=== PATIENT | female | born 1955 | race Hispanic/Latino ===

== ENCOUNTER 2017-10-20 16:18 | Outpatient (CLI) | payer BC | END 2017-10-20 16:19 | disposition home or self-care (01) | LOC: BICMAMMO 16:18 | PROVIDERS: ATTEND Physician Assistant | DX: Z12.31 Encounter for screening mammogram for malignant neoplasm of breast (principal); Z80.3 Family history of malignant neoplasm of breast | CPT/HCPCS: 77063; 77067 ==

== ENCOUNTER 2018-01-12 23:06 | Observation (INO) | payer BC ==
[2018-01-12] MEDS ORDERED: Ondansetron PF 4 MG/2 ML Vial ONE (23:19)
[2018-01-12] MEDS ORDERED: Nitroglycerin 2% Ointment 1 INCH/1 GM Packet ONE (23:51)
[2018-01-12 23:53] LABS: #Eosinphils 0.1 thou/uL (0.0-0.7); #Lymphocytes 1.6 thou/uL (1.20-3.40); #Monocytes 0.3 thou/uL (0.11-0.59); #Neutrophils 7.4 thou/uL (1.40-6.50); %Basophils 0.2 % (0.0-1.0); %Eosinophils 0.9 % (0.0-10.0); %Lymphocytes 17.1 % (21.0-51.0); %Monocytes 3.4 % (0.0-10.0); %Neutrophils 78.4 % (42.0-75.0); Hemoglobin 13.9 g/dL (12.0-16.0); Mean Corpuscular HGB CONC 30.8 g/dL (32.0-36.0); Mean Corpuscular Hemoglobin 27.1 pg (27.0-31.0); Mean Corpuscular Volume 87.9 fL (78.0-98.0); Mean Platelet Volume 7.2 fL (7.4-10.4); Platelet Count 268 thou/uL (130-400); RBC Distribution Width 11.7 % (11.5-14.5); Red Blood Cell (RBC) Count 5.14 mill/uL (4.20-5.40); White Blood Cell (WBC) Count 9.4 thou/uL (4.8-10.8)
[2018-01-13 00:17] LABS: ALT (SGPT) 25 U/L (8-55); AST (SGOT) 22 U/L (5-34); Albumin 4.4 g/dL (3.4-4.8); Alkaline Phosphatase 90 U/L (40-150); Anion Gap 15 mmol/L (10-20); BUN (Urea Nitrogen) 20 mg/dL (9.8-20.1); Bilirubin, Total 0.5 mg/dL (0.2-1.2); CK (CPK) 86 U/L (29-168); Calc. Creatinine Clearance 0 mL/min (70-130); Calcium 9.7 mg/dL (7.8-10.44); Carbon Dioxide 24 mmol/L (23-31); Chloride 103 mmol/L (98-107); Estimated GFR-MDRD 67; Globulin 3.3 g/dL (2.4-3.5); Glucose 180 mg/dL (80-115); Lipase 306 U/L (8-78); Potassium 4.1 mmol/L (3.5-5.1); Protein, Total 7.7 g/dL (6.0-8.3); Sodium 138 mmol/L (136-145)
[2018-01-13 00:21] LABS: CKMB 1.7 ng/mL (0-6.6); Troponin I Less than 0.010 ng/mL (< 0.028)
[2018-01-13] MEDS ORDERED: Ondansetron PF 4 MG/2 ML Vial IVP PRN ×2 (02:12→08:57)
[2018-01-13] MEDS ORDERED: Ondansetron ODT 4 MG TAB SL PRN (02:12)
[2018-01-13] MEDS ORDERED: Acetaminophen 325 MG TAB PO PRN ×2 (02:12→08:57)
[2018-01-13 02:24] VITALS: BMI 31.0
[2018-01-13 03:43] LABS: Troponin I Less than 0.010 ng/mL (< 0.028)
[2018-01-13 06:39] LABS: Troponin I Less than 0.010 ng/mL (< 0.028)
--- NOTE | 2018-01-13 08:03 | RAD ---
PORTABLE UPRIGHT FRONTAL CHEST RADIOGRAPH: DATE: 01/12/2018. COMPARISON: 08/02/2013. HISTORY: Chest pain. FINDINGS: Lungs are clear. Heart and mediastinal contours are stable. IMPRESSION: No acute findings. POS: [facility]
[2018-01-13] MEDS ORDERED: Nitroglycerin 0.4 MG TAB (25 Tab Bottle) PO PRN (08:57)
[2018-01-13] MEDS ORDERED: Ondansetron ODT 4 MG TAB PO PRN (08:57)
[2018-01-13] MEDS ORDERED: Calcium Carbonate 500 MG ChewTAB PO PRN (08:57)
[2018-01-13] MEDS ORDERED: Aspirin 325 MG TAB PO SCH (09:00)
[2018-01-13 13:42] VITALS: TEMP 98
[2018-01-13 16:33] VITALS: BP 113/55
--- NOTE | 2018-01-13 16:34 | NM ---
CARDIAC SPECT: HISTORY: A 62-year-old female with chest pain, hypertension, dyslipidemia. TECHNIQUE: A myocardial perfusion scan was performed using the single-isotope 1-day protocol with Technetium 99m sestamibi. Nine mCi were injected intravenously for the rest exam followed by 27 mCi for the stress study. Exercise stress was monitored and interpreted by LAQUITA Hyde. FINDINGS: Homogeneous tracer distribution is seen in the myocardial segments on stress and rest images without fixed or reversible defects. GATED SPECT LVEF: 83%. WALL MOTION EXAM: Normal. IMPRESSION: Normal myocardial perfusion scan. POS: [facility]
--- NOTE | 2018-01-14 00:10 | SS ---
DATE OF ADMISSION: 01/13/2018 DATE OF DISCHARGE: 01/13/2018 PRIMARY CARE PHYSICIAN: Telma Pappas M.D. CHIEF COMPLAINT: Chest discomfort. HISTORY OF PRESENT ILLNESS: The patient is a 62-year-old female with family history of heart disease, hyperlipidemia, and hypertension, who presented to the emergency room with chest discomfort that started yesterday around 7:30 p.m. She felt nauseous and had 2 episodes of vomiting. She denies any nausea or vomiting at this time. The chest tightness was substernal, pressure-like, without any radiation. She had some diaphoresis as well. She denies any palpitations, lightheadedness or syncope. She had a stress test 3 years ago. No recent immobilization, travel reported. She occasionally gets heartburn. In the emergency room, initial vital signs showed temperature 97.6, respiration of 18, pulse rate of 58, blood pressure of 193/88 with O2 saturation 98% on room air. Please note that patient intermittently forgets taking a blood pressure medicine. She took atenolol when the chest discomfort started. Blood pressure was also high at that time around 170s per patient report. PAST MEDICAL HISTORY: 1. Hypertension. 2. Hyperlipidemia. 3. Obesity. PAST SURGICAL HISTORY: section. ALLERGIES: No known drug allergies. CURRENT HOME MEDICATIONS: Atenolol 25 mg daily. FAMILY HISTORY: Father had tuberculosis. Mother with lung cancer. Heart disease runs in her family. SOCIAL HISTORY: The patient denies any history of smoking, alcohol or drug use. Her half-sister with breast cancer. REVIEW OF SYSTEMS: The following complete review of systems was negative, unless otherwise mentioned in the HPI or below: Constitutional: Weight loss or gain, ability to conduct usual activities. Skin: Rash, itching. Eyes: Double vision, pain. ENT/Mouth: Nose bleeding, neck stiffness, pain, tenderness. Cardiovascular: Palpitations, dyspnea on exertion, orthopnea. Respiratory: Shortness of breath, wheezing, cough, hemoptysis, fever or night sweats. Gastrointestinal: Poor appetite, abdominal pain, heartburn, nausea, vomiting, constipation, or diarrhea. Genitourinary: Urgency, frequency, dysuria, nocturia. Musculoskeletal: Pain, swelling. Neurologic/Psychiatric: Anxiety, depression. Allergy/Immunologic: Skin rash, bleeding tendency. PHYSICAL EXAMINATION: VITAL SIGNS: Showed temperature 97.6, respiration 18, pulse 58, blood pressure 193/88, and O2 saturation 98% on room air. Most recent blood pressure is in systolic 130s. HEENT: Head atraumatic, normocephalic. Sclerae are anicteric. Moist mucous membrane, no oral lesion. NECK: Supple, no JVD, no carotid bruit. LUNGS: Clear to auscultation bilaterally, no wheezing, rales or rhonchi. HEART: S1, S2 present. Regular rate and rhythm. No murmur, rubs, or gallops appreciated. ABDOMEN: Soft, nontender, bowel sounds present. EXTREMITIES: No edema or calf tenderness. NEUROLOGIC: Grossly nonfocal, moves all four extremities. PSYCHIATRIC: Alert, awake, oriented x3. SKIN: Warm and dry. LYMPH NODES: No palpable lymph nodes in the neck. PERIPHERAL VASCULAR: Radial pulses palpable bilaterally. MUSCULOSKELETAL: No joint swelling or tenderness. LABORATORY FINDINGS: Troponin was negative. BUN 20, creatinine 0.86. WBC 9.4 with hemoglobin 13.9, hematocrit 45.2, platelet count of 268. Chest x-ray by my review was negative for infiltrate. EKG by my review showed sinus rhythm without significant ST-T wave changes. LFTs were in normal range. IMPRESSION: 1. Chest discomfort, rule out acute coronary syndrome. 2. Obesity with a BMI 31.1. 3. Hypertension with medication noncompliance. 4. Hyperlipidemia. HOSPITAL COURSE: The patient underwent a stress test that was negative for reversible ischemia. Lifestyle modification was emphasized. She was advised to take her medications regularly. Her abdominal exam was benign. She will be started on PPIs. She was advised to follow up with her primary care physician. She will benefit from a right upper quadrant ultrasound as outpatient. Plan of care was discussed with the patient in detail. She stated understanding. TOSIN
--- NOTE | 2018-01-23 16:41 | EKG ---
Test Reason : Blood Pressure : / mmHG Vent. Rate : 057 BPM Atrial Rate : 057 BPM P-R Int : 150 ms QRS Dur : 070 ms QT Int : 454 ms P-R-T Axes : 042 012 011 degrees QTc Int : 441 ms Sinus bradycardia Otherwise normal ECG Confirmed by YESSI HEREDIA DO ([id number]), city editor MICHAEL DOUGLAS ([id number] on 01/23/2018 4:40:50 PM Referred By: Confirmed By:YESSI HEREDIA DO
== END 2018-01-13 16:36 | disposition home or self-care (01) ==
LOC: ERS 23:06 → 2NO 01-13 01:53
PROVIDERS: ADMIT Internal Medicine; ATTEND Internal Medicine
DX: R07.89 Other chest pain (principal); E78.5 Hyperlipidemia, unspecified; I10 Essential (primary) hypertension; E66.9 Obesity, unspecified; Z68.31 Body mass index [BMI] 31.0-31.9, adult; Z79.899 Other long term (current) drug therapy; Z91.14 Patient's other noncompliance with medication regimen
CPT/HCPCS: 36415; 71045; 78452; 80053; 82553; 83690; 84484; 85025; 93005; 93017; 94760; 96374; A9500; G0378; J2405

== ENCOUNTER 2018-01-26 10:30 | Outpatient (CLI) | payer BC ==
--- NOTE | 2018-01-26 12:47 | ULT ---
ABDOMEN ULTRASOUND: HISTORY: Elevated lipase. FINDINGS: The liver demonstrates increased echogenicity, consistent with fatty infiltration. No focal mass or intrahepatic ductal dilatation is seen. The spleen is normal, measuring 8.2 cm in length. No gallst ones, gallbladder wall thickening, or pericholecystic fluid is seen. The common duct measures 3 mm i n diameter. The pancreas, kidneys and visualized portions of the aorta and IVC are normal. No free fluid is seen in the abdomen. IMPRESSION: 1. Fatty liver. 2. No evidence of cholelithiasis. POS: [facility]
== END 2018-01-26 10:31 | disposition home or self-care (01) ==
LOC: BICULT 10:30
PROVIDERS: ATTEND Family Medicine
DX: R74.8 Abnormal levels of other serum enzymes (principal); K76.0 Fatty (change of) liver, not elsewhere classified
CPT/HCPCS: 76700

== ENCOUNTER 2018-11-28 14:25 | Outpatient (CLI) | payer BC ==
--- NOTE | 2018-11-28 15:45 | RAD ---
LEFT HAND 3 VIEWS: Date: 11/28/18 HISTORY: Hand pain. FINDINGS: Mild DJD at the first carpometacarpal. MCP joints show mild narrowing without erosive or hypertrophic change. Degenerative change is prominent at the IP joints. The IP joint of the thumb shows gull wing type deformity with spurring. PIP joints of the second and third digits show mild gull wing deformit y with spurring. Severe hypertrophic degenerative change at the DIP joints of the second and third di gits with moderate DJD at the DIP joints of the fourth and fifth digits. IMPRESSION: Prominent degenerative changes of the IP joints as described, suggesting erosive osteoarthritis. POS: [facility]
--- NOTE | 2018-11-28 15:46 | RAD ---
RIGHT HAND: 11/28/18 Two views. HISTORY: Hand pain. Mild DJD at the first carpometacarpal. The MCP joints show mild narrowing without erosive change or h ypertrophic change. Prominent hypertrophic degenerative change at the IP joints. The IP joint of the thumb shows prominen t hypertrophic change with gull wing deformity. Prominent degenerative change at the DIP joints espec ially pronounced at the second, third, and fourth DIP joints. IMPRESSION: Prominent degenerative changes in the DIP joints consistent with erosive osteoarthritis. POS: [facility]
== END 2018-11-28 14:26 | disposition home or self-care (01) ==
LOC: BICRAD 14:25
PROVIDERS: ATTEND Internal Medicine Rheumatology
DX: M79.641 Pain in right hand (principal); M79.642 Pain in left hand; M19.042 Primary osteoarthritis, left hand; M19.041 Primary osteoarthritis, right hand

== ENCOUNTER 2020-06-09 09:46 | Outpatient (CLI) | payer BC, MEDICARE | END 2020-06-09 09:47 | disposition home or self-care (01) | LOC: BICMAMMO 09:46 | PROVIDERS: ATTEND Family Medicine | DX: Z12.31 Encounter for screening mammogram for malignant neoplasm of breast (principal); Z13.820 Encounter for screening for osteoporosis; M85.89 Other specified disorders of bone density and structure, multiple sites | CPT/HCPCS: 77063; 77067; 77080 ==

== ENCOUNTER 2022-10-11 12:51 | Outpatient (CLI) | payer BC | END 2022-10-11 12:52 | disposition home or self-care (01) | LOC: BICMAMMO 12:51 | PROVIDERS: ATTEND Family Medicine | DX: Z12.31 Encounter for screening mammogram for malignant neoplasm of breast (principal); Z13.820 Encounter for screening for osteoporosis; M85.89 Other specified disorders of bone density and structure, multiple sites; Z78.0 Asymptomatic menopausal state | CPT/HCPCS: 77063; 77067; 77080 ==